=== PATIENT | male | born 1950 | race Caucasian/White ===

== ENCOUNTER 2024-11-21 17:47 | Emergency (ER) | payer MEDICARE, SELFPAY ==
--- NOTE | ~2024-11-21 | XR_ITS ---
XR chest 2V Ordering provider: Alessandra Jackson NP History: 74 years Male with . cough x 2 wks . Comparison: None. FINDINGS: MEDIASTINUM: The cardiac silhouette is not enlarged. LUNGS: No infiltrates, effusions or pneumothorax. OTHER: No free air under the diaphragm. IMPRESSION: No acute cardiopulmonary pathology. Reviewed, dictated and finalized at location A.
[2024-11-21 17:58] VITALS: BP 131/78; PULSE 67; RESP 16; TEMP 36.2; O2SAT 100
--- NOTE | 2024-11-21 18:00 | ED_ITS ---
HPI - General Adult General Chief complaint: Dizziness Stated complaint: Light Head Time Seen by Provider: 11/21/24 18:00 Source: patient Mode of arrival: ambulatory Limitations: no limitations History of Present Illness HPI narrative: 74-year-old male with history of hypertension presents today with complaint of intermittent feeling of lightheadedness since yesterday. Patient completed Medrol Dosepak, has a few days left of cefuroxime prescription for bacterial sinusitis. Continues to have drainage, congestion and coughing but states symptoms have improved. States he felt like he was fatigued this afternoon and needed to take a nap which is not normal for him. Patient has been off his hydrochlorothiazide for approximately 1 month. Creatinine level was elevated and taken off medication by his primary care physician. Patient took his blood pressure at home today and was 150 systolic. Thought that this was high for him so took a hydrochlorothiazide pill that he had at home. Not having any sympt oms of lightheadedness while at [facility] today. No chest pain or shortness of breath. Patient is alert. All systems reviewed and negative except as noted above. Related Data Home Medications ?Medication ?Instructions ?Recorded ?Confirmed ?Last Taken ?Type atorvastatin 40 mg tablet mg 11/21/24 Unknown History ezetimibe 10 mg tablet mg 11/21/24 Unknown History hydrochlorothiazide 25 mg tablet mg 11/21/24 Unknown History icosapent ethyl 1 gram capsule g PO 11/21/24 Unknown History (Vascepa) losartan 100 mg tablet mg 11/21/24 Unknown History Allergies Allergy/AdvReac Type Severity Reaction Status Date / Time No Known Allergies Allergy Mild Verified 11/21/24 17:59 Review of Systems Review of Systems: CONSTITUTIONAL: Denies fever, chills, or sweats. EYES: Denies visual changes, redness, or discharge. ENT: Reports rhinorrhea, congestion, reports nasal drainage. Denies sore throat, or otalgia. CARDIOVASCULAR: Denies chest pain, palpitations, or edema. RESPIRATORY: Reports cough. Denies dyspnea. GASTROINTESTINAL: Denies abdominal pain, nausea, vomiting, or diarrhea. GENITOURINARY: Denies dysuria or hematuria. SKIN: Denies rash or itching. MUSCULOSKELETAL: Denies back pain, joint pain, or myalgia. NEUROLOGIC: Denies headache, numbness, or weakness. Denies dizziness. Reports intermittent lightheadedness. PSYCHIATRIC: Denies anxiety or depression. All other systems reviewed are negative, except as documented in HPI. PMFSH Comments At time of signature, agree with nursing past medical, surgical, social and family history. There is no relevant family history pertinent to the presenting complaint. Exam Narrative: GENERAL: This is a well-nourished, well-developed patient, in no apparent distress. HEAD: normocephalic, atraumatic. EYES: PERRL. Sclera clear/white. Vision is grossly intact. EARS: External ears normal, auditory canals clear and without drainage, TMs normal without perforation. Hearing grossly intact. NOSE: External nose normal with no obvious nasal discharge, nares without r edness, no rhinorrhea. THROAT: Mucous membranes moist, posterior pharynx clear. NECK: Neck supple, non-tender without lymphadenopathy, masses or thyromegaly. CARDIOVASCULAR: Regular rate and rhythm without murmurs, gallops, or rubs. RESPIRATORY: Clear to auscultation. Breath sounds equal bilaterally. No wheezes, rales, or rhonchi. SKIN: warm, Dry, intact with no suspicious lesions or rash, good texture and turgor. NEURO: awake, alert, and oriented to person, place and time. There were no obvious focal neurologic abnormalities. EXTREMITIES: No joint tenderness, effusion, or edema noted. Course Course Level of Care: Express Care Visit Vital Signs Vital signs: Vital Signs Temperature 36.2 C L 11/21/24 17:58 Pulse Rate 67 11/21/24 17:58 Respiratory Rate 16 11/21/24 17:58 Blood Pressure 131/78 11/21/24 17:58 Pulse Oximetry 100 11/21/24 17:58 Temperature 36.2 C L 11/21/24 17:58 Pulse Rate 67 11/21/24 17:58 Respiratory Rate 16 11/21/24 17:58 Blood Pressure 131/78 11/21/24 17:58 Pulse Oximetry 100 11/21/24 17:58 Reviewed Medical Decision Making MDM Narrative Medical decision making narrative: Chest x-ray normal. Urinalysis 1+ blood. Patient reports lightheadedness resolved. States he is feeling much better. Thinks that his blood pressure was elevated and HCTZ treated BP and resolved lightheadedness. Plans to take HCTZ again tomorrow. I recommended that pt not take the HCTZ, since PCP took him off medication, and monitor BP and call PCP for follow up. will go to ER for any worsening of symptoms. Vital Signs Vital Signs: Vital Signs Temperature 36.2 C L 11/21/24 17:58 Pulse Rate 67 11/21/24 17:58 Respiratory Rate 16 11/21/24 17:58 Blood Pressure 131/78 11/21/24 17:58 Pulse Oximetry 100 11/21/24 17:58 Temperature 36.2 C L 11/21/24 17:58 Pulse Rate 67 11/21/24 17:58 Respiratory Rate 16 11/21/24 17:58 Blood Pressure 131/78 11/21/24 17:58 Pulse Oximetry 100 11/21/24 17:58 Discharge Plan Discharge Clinical Impression: Intermittent lightheadedness Patient Disposition: Home Condition: Stable Instructions: Lightheadedness (ED) Additional Instructions: Your urinalysis showed a small amount of blood. Your chest x-ray was normal. Your blood pressure was 142/76. Continue taking medications as prescribed. Drink at least 64 oz of water a day. Follow up with your primary care physician to further evaluate your symptoms. If you are having any chest pain or shortness of breath go to the ER. Patient Language: Yoruba Prescriptions: No Action atorvastatin 40 mg tablet hydrochlorothiazide 25 mg tablet losartan 100 mg tablet ezetimibe 10 mg tablet icosapent ethyl [Vascepa] 1 gram capsule PO Follow-up/Referrals: Evita,Conner Hudson MD [Primary Care Provider] - Time of Disposition: 19:04
[2024-11-21 19:37] LABS: EDUAAPPEAR Clear; EDUABILI Negative (Negative); EDUABLOOD 1+ (Negative); EDUACOLOR1 Yellow; EDUAGLUCOSE Negative (Negative); EDUAKETONE Negative (Negative); EDUALEUKO Negative (Negative); EDUANITRATE Negative (Negative); EDUAPROTEIN Negative (Negative); EDUAUROBILI 0.2
== END 2024-11-21 19:06 | disposition home or self-care (01) ==
PROVIDERS: Emergency Provider Nurse Practitioner Family; PCP Internal Medicine
DX: R42 Dizziness and giddiness (principal); I10 Essential (primary) hypertension; E78.00 Pure hypercholesterolemia, unspecified
CPT/HCPCS: 71046; 81003; 99203; G0463